=== PATIENT | male | born 1990 | race African-American/Black ===

== ENCOUNTER 2017-05-16 22:05 | Emergency (ER) | payer OTHER ==
[~2017-05-16] VITALS: Ht 172.7 cm; Wt 87.3 kg
[2017-05-16 22:13] VITALS: TEMP 36.7; Ht 172.7 cm; Wt 87.3 kg
--- NOTE | 2017-05-16 22:38 | DIAGNOSTIC IMAGING REPORT ---
RIGHT FINGER(S) MIN 2 VIEWS ROUTINE CLINICAL HISTORY: 26 years-old Male presenting with post reduction, right 5th, mcp Right. TECHNIQUE: Frontal, oblique, and lateral views of the right fifth finger were obtained. COMPARISON: None. FINDINGS: Osseous fragment at the volar aspect of the base of the middle phalanx of the fifth finger. No malalignment at the proximal interphalangeal joint. No other osseous injury noted. IMPRESSION: No malalignment status post reported reduction. Osseous fragments at the volar aspect of the base of the middle phalanx of the fifth finger, likely an avulsion injury. Electronically signed by: Adrián Epstein M.D. 05/16/2017 10:37 PM Dictated Date/Time: 05/16/2017 10:35 PM
[2017-05-16 23:23] VITALS: BP 132/77; PULSE 53; O2SAT 97
--- NOTE | 2017-05-17 03:55 | EMERGENCY ROOM VISIT NOTE ---
ED Visit Note First contact with patient: 22:12 CHIEF COMPLAINT: Finger injury HISTORY OF PRESENT ILLNESS: This 26-year-old prisoner patient presents to the emergency department with correction officers after injuring the right fifth finger when he jammed it playing basketball and dislocated it. The patient rates the pain as throbbing and 5/10. The patient has limited range of motion of the finger. No numbness or tingling. No lacerations. No other injuries. The patient has not had previous fracture to this finger. The patient has taken nothing for the pain. REVIEW OF SYSTEMS: A 6 system review of systems was completed with positives and pertinent negatives in the HPI. ALLERGIES: none MEDICATIONS: none PMH: none SOCIAL HISTORY: no current drug use PHYSICAL EXAM: Vital Signs: Reviewed Nurse's notes, vital signs stable. GENERAL : Pleasant male in shackles, in no acute distress, but appears to be in pain, well-developed, well-nourished. MUSCULOSKELETAL: There is a deformity of the right fifth finger with obvious dislocation. The patient has limited flexion and extension of the finger secondary to obvious dislocation. Strength to resistance is limited secondary to obvious dislocation. The MCP joint is maximally tender. There is no ligamentous instability. There is no laceration. Capillary refill less than 2 seconds. No tenderness of the remaining fingers or hand. Full range of motion of the wrist. NEURO: Alert and oriented to person, place, and time. Normal sensation to light and sharp touch. EMERGENCY DEPARTMENT COURSE: I examined the patient. Patient agreed to reduction of dislocation. With gentle traction the finger was reduced. An x- ray of the fifth finger was reviewed by myself and radiology and showed avulsion type fracture. After the finger was reduced, patient had full flexion and extension of the finger. The finger was immobiziled by finger splint under my direction and the position was satisfactory. Neurovascular status rechecked and intact. The patient was discharged home in good condition. He was advised to follow-up with the residential doctor in a few days. DIAGNOSIS: #1 right fifth finger MCP dislocation #2 right fifth finger avulsion fracture DISCHARGE INSTRUCTIONS: As below Current/Historical Medications No Active Prescriptions or Reported Meds Allergies Coded Allergies: No Known Allergies (Unverified , 05/16/17) Vital Signs Date Time Temp Pulse Resp B/P (MAP) Pulse Ox O2 Delivery O2 Flow Rate FiO2 05/16/17 23:23 53 16 132/77 97 05/16/17 22:13 36.7 53 18 124/74 97 Room Air Departure Information Impression Primary Impression: Fracture/dislocation, finger, proximal/middle phalanx Dispostion Home / Self-Care Condition GOOD Prescriptions No Active Prescriptions or Reported Meds Referrals Mehul Otoole, DO Forms WORK / SCHOOL INSTRUCTIONS, HOME CARE DOCUMENTATION FORM, IMPORTANT VISIT INFORMATION Patient Instructions [facility], ED Dislocation Finger Redu, ED Fx Finger Closed Additional Instructions Ibuprofen(Motrin, Advil) may be used for fever or pain. Use 600mg every six hours as needed. Take with food. Avoid using more than 2400mg in a 24 hour period. Do not use 2400mg per day for more than three consecutive days without physician direction. Prolonged inappropriate use can lead to stomach upset or ulcers. This medication can be taken if you need to drive, work, or perform activities which may be dangerous when taking narcotic pain medication. (AND/OR) Acetaminophen(Tylenol) may be used for fever or pain. Use 1000mg every six hours as needed. Avoid using more than 3000mg in a 24 hour period. This medication can be taken if you need to drive, work, or perform activities which may be dangerous when taking narcotic pain medication. Ice compresses for 20 minutes at a time four times daily for 2-3 days. Rest and elevate your injury. Wear finger splint. Do not have it so tight that you cannot feel your finger. Continue current medications. Return to the ER immediately for any numbness, tingling, severe pain, extreme swelling in the extremity or as needed. Call Orthopedics tomorrow to arrange follow up for your injury.
== END 2017-05-16 23:24 | disposition home or self-care (01) ==
LOC: C.EDB 22:08 → C.EDC 23:24
DX: S62.616A Displaced fracture of proximal phalanx of right little finger, initial encounter for closed fracture (principal); S62.626A Displaced fracture of middle phalanx of right little finger, initial encounter for closed fracture; X58.XXXA Exposure to other specified factors, initial encounter; Y93.67 Activity, basketball; Y99.8 Other external cause status